=== PATIENT | female | born 1975 | race Caucasian/White ===

== ENCOUNTER → 2019-01-15 08:41 | Outpatient (CLI) | payer OTHER, SELFPAY ==
[2018-12-23 11:37] VITALS: BMI 34.2
--- NOTE | 2019-01-15 08:43 | BI_ITS ---
MAMMOGRAPHY - BILATERAL SCREENING REASON FOR EXAM: Female, 43 years old. Routine annual screening examination. PERTINENT HISTORY: Non-contributory. Prior left ultrasound-guided breast biopsies. TECHNIQUE: Digital bilateral breast daphnie (3D mammographic acquisition) in the CC and MLO projections. 2-D mediolateral oblique (MLO) and craniocaudad (CC) views of both breasts were obtained. CAD: Full Field Digital Mammography with Computer Added Detection was performed. COMPARISON: Comparison is made with prior study dated October 15, 2017. FINDINGS: Breast Composition: The breasts are extremely dense, which lowers the sensitivity of mammography. There is a 3.8 cm x 4.3 cm well-defined nodular density in the upper deep lateral portion of the left breast. A tissue clip marker is seen within it. 3 tissue clip markers are seen in the left breast. No other significant abnormalities are identified. There has been no significant change since the prior study. BI/SCREEN MAMM (CAD) W/DAPHNIE BILAT IMPRESSION: Stable bilateral screening mammogram. Yearly follow-up mammogram recommended. (A) ASSESSMENT CATEGORY: BIRADS Category 2: Benign. A letter regarding these results will be sent to the patient by the facility within 30 days. Approximately 10% of breast cancers are not detected by mammography. A normal mammogram should not delay biopsy of a clinically suspicious abnormality. [id number] Electronically Signed: Alexsnader Rush MD at 11:14 EST , Service support ,
== END ==
PROVIDERS: Family Provider Family Medicine; PCP Family Medicine; Referring Provider Obstetrics & Gynecology; Visit Provider Obstetrics & Gynecology
DX: Z12.31 Encounter for screening mammogram for malignant neoplasm of breast (principal)
CPT/HCPCS: 77063; 77067

== ENCOUNTER → 2020-01-21 09:49 | Outpatient (CLI) | payer OTHER, SELFPAY ==
[2018-12-23 11:37] VITALS: BMI 34.2
[2020-01-06 10:58] VITALS: BMI 34.2
--- NOTE | 2020-01-21 09:51 | BI_ITS ---
MAMMOGRAPHY - BILATERAL SCREENING REASON FOR EXAM: Female, 44 years old. Routine annual screening examination. PERTINENT HISTORY: Non-contributory. TECHNIQUE: Digital bilateral breast daphnie (3D mammographic acquisition) in the CC and MLO projections. 2-D mediolateral oblique (MLO) and craniocaudad (CC) views of both breasts were obtained. CAD: Full Field Digital Mammography with Computer Added Detection was performed. COMPARISON: Comparison is made with prior study dated January 15, 2019 and October 15, 2017. FINDINGS: Breast Composition: The breasts are extremely dense, which lowers the sensitivity of mammography. There are no dominant masses or suspicious calcifications. Stable 3.5 cm x 4 cm well-defined nodule in the upper lateral aspect of the left breast. A tissue clip marker is seen within it. 3 additional tissue markers are seen in the left breast. Stable small benign-appearing bilateral axillary lymph nodes. No other significant abnormalities are identified. There has been no significant change since the prior study. BI/SCREEN MAMM (CAD) W/DAPHNIE BILAT IMPRESSION: Stable bilateral screening mammogram. Yearly follow-up mammogram recommended. (A) ASSESSMENT CATEGORY: BIRADS Category 2: Benign. A letter regarding these results will be sent to the patient by the facility within 30 days. Approximately 10% of breast cancers are not detected by mammography. A normal mammogram should not delay biopsy of a clinically suspicious abnormality. [id number] Electronically Signed: Alexsander Rush, at 11:04 EST , Service support ,
== END ==
PROVIDERS: Family Provider Family Medicine; PCP Family Medicine; Referring Provider Obstetrics & Gynecology; Visit Provider Obstetrics & Gynecology
DX: Z12.31 Encounter for screening mammogram for malignant neoplasm of breast (principal)
CPT/HCPCS: 77063; 77067

== ENCOUNTER → 2020-07-28 11:00 | Outpatient (CLI) | payer OTHER, SELFPAY ==
[2020-01-06 10:58] VITALS: BMI 34.2
--- NOTE | 2020-07-28 11:05 | RAD_ITS ---
STUDY: X-RAY - LUMBAR SPINE REASON FOR EXAM: Female, 45 years old. lumbosacral radiculopathy TECHNIQUE: 5 view(s) of the lumbar spine were obtained. COMPARISON: None FINDINGS: There is straightening of the normal lumbar lordosis. There is no substantial scoliosis. There is a normal alignment of the vertebrae. Normal vertebral bodies and endplates. Moderate degenerative disc disease and loss of disc height at L5-S1, otherwise normal disc space heights. There is no demonstrated fracture. The soft tissue structures are unremarkable. RAD/L/S Spine Min 4 Views IMPRESSION: No acute abnormality. Degenerative disc disease at L5-S1. Electronically Signed: Dalton Ware MD at 19:08 EDT , Service support ,
== END ==
PROVIDERS: PCP Family Medicine; Referring Provider Nurse Practitioner Family; Visit Provider Nurse Practitioner Family
DX: M54.9 Dorsalgia, unspecified (principal)
CPT/HCPCS: 72110

== ENCOUNTER 2020-09-04 11:30 | Outpatient (RCR) | payer OTHER, SELFPAY ==
[2020-01-06 10:58] VITALS: BMI 34.2
--- NOTE | 2020-08-04 13:56 | HP.PTEVAL ---
Patient's Visit Information SEBASTIEN ORTIZ is a 45 year old F referred to Physical Therapy by VANESSA Li with a diagnosis of DDD. Date of Evaluation: 08/04/20 Physical Therapist: Nurys Downing PT, Cert MDT - Visit Plan Frequency: 2-3x /Week Duration: 4-6 Weeks Plan: AQUATIC THERAPY FOR PAIN RELIEF, POSTURE CORRECTION/STRENGTHENING, INSTRUCTION IN APPROPRIATE BODY MECHANICS AND ACTIVITY MODIFICATIONS. DLS STARTING WITH A NEUTRAL SPINE PROGRESSING ROM TOLERATED. BILL LE ROM, STRETCHING AND STRENGTHENING. HEP INSTRUCTION. 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 Disability: NO. Present symptoms: LOW BACK PAIN. TAILBONE PAIN. RIGHT THIGH PAIN RECENT ABOUT A MONTH AGO. LEFT THIGH, LEG AND FOOT PAIN, NUMBNESS AND TINGLING RECENT ABOUT 3 WEEKS AGO. Present since: 15 YEARS. Pain Scale: WORST 8/10, LEAST 5/10 (CONSTANT LBP BUT LE SX'S COME AND GO). Currently: 8/10. Commenced as a result of: NO APPARENT REASON OTHER THAN DOING A LOT OF BENDING TO DO PEDICURES AND HOUSE CLEANING. Symptoms at onset: BACK. Worse: SITTING, BENDING, CLEANING, GARDENING, WEEDING, ANYTHING BENDING. MANICURES AT WORK. Better: STANDING, LYING DOWN. Disturbed sleep: YES. Previous history/Previous treatment: PHYSICAL THERAPY - NO BETTER NO WORSE ([facility]), [facility] MULTIPLE TIMES WITH DR. LOPEZ - DID NOT HELP. ALSO TO DR. TILLEY TWICE FOR INJECTIONS AND THEY DID NOT HELP EITHER. PRESCRIBED 500 MB OF NAPROXEN AND IT SEEMS TO HELP SOME. TRIED CHIRO ONCE A LONG TIME AGO AND IT MADE IT MADE ME WORSE. ACCUPUNCTURE, MASSAGE - NO LASTING EFFECT. Coughing/sneezing/straining: SOMETIMES. Gait: PATIENT REPORTS BY THE END OF WORKING ALL DAYS SOMETIMES SHE CAN'T WALK STRAIGHT. NO ASSISTIVE DEVICES. Difficulty initiating urinatin: NO. Accidents: NO. Unexplained weight loss: NO. Imaging: LOW BACK X-RAY LAST WEEK - [facility] EMR - Moderate degenerative disc disease and loss of disc height at L5-S1, otherwise normal disc space heights. There is no demonstrated fracture. PMH: DEPRESSION, RLS, INSOMNIA. Recent major surgery: HYSTERECTOMY, L IT BAND RELEASE 1994 - PATIENT REPORTS FULL RECOVERY. LEFT WRIST PAIN. OTHER: PATIENT REPORTS SHE WAS GOING TO SEE A SURGEON ABOUT 8 YEARS AGO BUT DECIDED NOT TO. - Objective Sitting/Standing Posture: POOR. Lordosis: NORMAL. Lateral shift: NO. Relevant shift: N/A. Active Correction of posture: NE. Other Observations: INDEP GAIT AND TRANSFERS. Motor deficit: BILL LE STRENGTH 5/5 WITH MMT'ING EXCEPT HIPS GRADED 4/5. Sensory deficit: BILL LE LIGHT TOUCH SENSATION IS REPORTED INTACT AND SYMMETRICAL. ROM deficit: TIGHT BILL HS'S AND GASTROC SOLEUS COMPLEX'S. Reflexes: UNABLE TO ELICIT BILL LE DTR'S. Dural Signs: POSITIVE LLE. Lumbar mvmt loss: flex - MOD. ext - MOD. R SG - MOD. L SG - MOD. PATIENT C/O INCREASED LBP WITH LUMBAR ROM TESTING ALL PLANES. Core strength: POOR. Palpation: PATIENT DOES NOT LIKE TO BE PALPATED IN LOW BACK REGION AT ALL. TREATMENT: NEUROMUSCULAR REEDUCATION - RETRAINING OF MVMT AND POSTURE FOR SITTING, LYING AND STANDING ACTIVITIES. - Goals Goal 1:: DECREASE C/O LOW BACK PAIN Goal Time Frame: 4-6 Weeks Goal 2:: IMPROVE PERSONAL CARE, LIFTING, WALKING, SITTING, STANDING, SLEEP, SOCIAL LIFE, TREAVEL, WORK AND HOMEMAKING FUNCTION. Goal Time Frame: 4-6 Weeks Goal 3:: INSTRUCTION IN PROPHYLAXIS Goal Time Frame: 4-6 Weeks - Anticipated Interventions Patient/Client Instruction: Educate patient on: Condition, Plan of Care, Risk Factors, Benefits of Fitness Program For the Purpose of:: To improve self management Therapeutic Exercise to Include: Strength training, Body mechanics, Postural training, Flexibilty training, Neuromotor development, In an aquatic setting, Dynamic Lumbar Stabilization For the Purpose of:: To decrease pain, To improve muscle performance and motor function, To increase tolerance to activity/condition/position, To improve ability of physical actions for home/community/work/leisure Thank you for the opportunity to evaluate your patient. For Medicare and Medicare HMO plans, please review the plan of care and approve it. It will need to be FAXED BACK to us at [phone] for Medicare purposes. For Medicare only, by signing this I certify the plan of care. Please let me know if there are questions or concerns regarding this plan of care. Physician Signature: Date:
--- NOTE | 2020-09-04 12:01 | HP.PTDCSUM ---
It has been my pleasure to treat SEBASTIEN ORTIZ referred by VANESSA Li, with the diagnosis of DDD for a total of 12 visit(s). Discharge Date: Please see the following information for a summary of their discharge status. Subjective: PATIENT REPORTS SHE IS NO BETTER. IT IS ALWAYS VERY PAINFUL WHEN I AM SITTING. FOLLOW UP PENDING WITH PAIN MGMT FRIDAY. Lumbar Spine Pain Intensity (Out of 10): 9 LLE Pain Intensity (Out of 10): 7 RLE Pain Intensity (Out of 10): 4 % Improvement: 0 Objective/Function: PATIENT WAS SEEN TODAY FOR RE-ASSESSMENT OF PROGRESS TOWARD THE SET PT GOALS AND THE NEED FOR FURTHER PHYSICAL THERAPY VS READINESS FOR DISCHARGE. PATIENT IS NOT MAKING PROGRESS AND IS APPROPRIATE FOR DISCHARGE AND PHYSICIAN RE-ASSESSMENT. PATIENT IS AGREEABLE. UPON EXAM TODAY: Dural Signs: POSITIVE LLE. Lumbar mvmt loss: flex - MOD. ext - MOD. R SG - MOD. L SG - MOD. PATIENT C/O INCREASED LBP WITH LUMBAR ROM TESTING ALL PLANES. Core strength: POOR. Palpation: PATIENT DOES NOT LIKE TO BE PALPATED IN LOW BACK REGION AT ALL. Goal 1:: DECREASE C/O LOW BACK PAIN Goal Progress: Not Progressing Goal 2:: IMPROVE PERSONAL CARE, LIFTING, WALKING, SITTING, STANDING, SLEEP, SOCIAL LIFE, TREAVEL, WORK AND HOMEMAKING FUNCTION. Goal Progress: Not Progressing Goal 3:: INSTRUCTION IN PROPHYLAXIS Goal Progress: Not Progressing Plan: D/C DUE TO LACK OF PROGRESS. If there are questions or concerns regarding this patient's physical therapy, please feel free to call me at [phone]. Thank you for the referral of this patient. Sincerely, Nurys Downing, PT, Cert MDT
== END 2020-09-04 19:00 | disposition home or self-care (01) ==
LOC: PT 11:30
PROVIDERS: PCP Family Medicine; Referring Provider Nurse Practitioner Family; Visit Provider Nurse Practitioner Family
DX: M51.37 Other intervertebral disc degeneration, lumbosacral region (principal)
CPT/HCPCS: 97113; 97162; 97164

== ENCOUNTER → 2020-09-15 17:43 | Outpatient (CLI) | payer OTHER, SELFPAY ==
[2020-01-06 10:58] VITALS: BMI 34.2
--- NOTE | 2020-09-15 18:15 | MRI_ITS ---
STUDY: MRI LUMBAR SPINE WITHOUT CONTRAST REASON FOR EXAM: Female, 45 years old. Radiculopathy spondylosis left leg pain TECHNIQUE: Standardized fat and water weighted pulse sequences were obtained in the sagittal and axial planes. COMPARISON: 28 July 2020 FINDINGS: lumbar spine is intact and aligned. Marrow, paraspinous soft tissues and SI joints are unremarkable. Conus medullaris terminates at the appropriate level with unremarkable cauda equina. Spinal canal is patent. There is disc extrusion along the left dorsal L5 compressing the left L4-L5 lateral recess and traversing L5 nerve root. It is not clear which disc level is the donor for this herniation, L4-L5 above L5-S1 below. Right recess is patent. Foramina are patent at all levels. MRI/Spine Lumbar (Routine) IMPRESSION: 1. Patent thecal sac. 2. Left L4-L5 lateral recess stenosis by disc extrusion. Electronically Signed: John Heart, at 19:20 EDT Tel , Service support ,
== END ==
PROVIDERS: PCP Family Medicine; Referring Provider Anesthesiology Pain Medicine; Visit Provider Anesthesiology Pain Medicine
DX: M54.17 Radiculopathy, lumbosacral region (principal); M51.37 Other intervertebral disc degeneration, lumbosacral region; M47.817 Spondylosis without myelopathy or radiculopathy, lumbosacral region; M48.07 Spinal stenosis, lumbosacral region
CPT/HCPCS: 72148

== ENCOUNTER → 2020-10-11 09:42 | Outpatient (CLI) | payer OTHER, SELFPAY ==
[2020-01-06 10:58] VITALS: BMI 34.2
== END ==
PROVIDERS: PCP Family Medicine; Referring Provider Orthopaedic Surgery Orthopaedic Surgery of the Spine; Visit Provider Orthopaedic Surgery Orthopaedic Surgery of the Spine
DX: Z11.59 Encounter for screening for other viral diseases (principal)
CPT/HCPCS: 87635; C9803; U0003

== ENCOUNTER → 2020-10-12 11:21 | Outpatient (CLI) | payer OTHER, SELFPAY ==
[2020-01-06 10:58] VITALS: BMI 34.2
[2020-10-12 11:37] LABS: Absolute Lymphocyte Count 2.18 X10^3/uL (0.83-4.51); Absolute Neutrophil Count 5.7 X10^3/uL (2.0-7.7); Basophil# 0.03 X10^3/uL; Basophil% 0.3 % (0-1); Eosinophil# 0.18 X10^3/uL; Eosinophils% 2.1 % (0-5); Hematocrit 40.6 % (37-47); Hemoglobin 13.6 g/dL (12.0-15.0); Lymphocyte # 2.18 X10^3/ul (4.0); Lymphocyte % 24.8 % (19-41); Mean Corp Hgb Conc 33.5 g/dL (32-36); Mean Corpuscular Hgb 31.1 pg (27.0-32.0); Mean Corpuscular Volume 92.7 fL (81-99); Mean Platelet Vol. 9.7 fl (6.2-12.0); Monocyte# 0.71 X10^3/uL; Monocyte% 8.1 % (0-10); NRBC Flagged by Analyzer 0 % (0-5); Neutrophil # 5.66 X10^3/uL (2.7-7.7); Neutrophil % 64.5 % (47-70); Platelet Count 280 K/mm3 (150-450); RBC Distribution Width CV 12.2 % (11.6-14.6); RBC Distribution Width SD 41.8 fl (35.1-43.9); Red Blood Count 4.38 M/mm3 (4.2-5.4); White Blood Count 8.8 K/mm3 (4.4-11.0)
[2020-10-12 11:48] LABS: Prothrombin Time (Protime)PT. 12.8 SECONDS (11.7-14.9)
== END ==
PROVIDERS: PCP Family Medicine; Referring Provider Orthopaedic Surgery Orthopaedic Surgery of the Spine; Visit Provider Orthopaedic Surgery Orthopaedic Surgery of the Spine
DX: M51.26 Other intervertebral disc displacement, lumbar region (principal)
CPT/HCPCS: 36415; 85025; 85610

== ENCOUNTER → 2021-04-23 07:21 | Outpatient (CLI) | payer OTHER, SELFPAY ==
[2020-01-06 10:58] VITALS: BMI 34.2
[2021-03-26 11:01] VITALS: BMI 35.4
--- NOTE | 2021-04-23 07:26 | BI_ITS ---
MAMMOGRAPHY - BILATERAL SCREENING REASON FOR EXAM: Female, 45 years old. Routine annual screening examination. PERTINENT HISTORY: Non-contributory. Remote left breast biopsies. TECHNIQUE: Digital bilateral breast daphnie (3D mammographic acquisition) in the CC and MLO projections. 2-D mediolateral oblique (MLO) and craniocaudad (CC) views of both breasts were obtained. CAD: Full Field Digital Mammography with Computer Added Detection was performed. COMPARISON: Comparison is made with prior study 10/21/2020 and 01/15/2019. FINDINGS: Breast Composition: The breasts are extremely dense, which lowers the sensitivity of mammography. There is a dominant 5.7 cm x 4.5 cm rounded nodular density in the upper lateral aspect of the left breast. A tissue clip marker seen within it. This has increased in size as compared to prior study. There is also evidence of a 1.1 cm x 1 cm nodular density in the central deep portion of the left breast. A tissue clip marker is seen within this nodule. Correlation with ultrasound is recommended. Once again, 3 tissue clip marker seen in the left breast. No other significant abnormalities are identified. BI/SCRN MAMM (CAD)W/DAPHNIE BILAT IMPRESSION: Interval increase in size of the nodular density in the upper lateral aspect of the left breast as described. Correlation with ultrasound is recommended. ASSESSMENT CATEGORY: BIRADS Category 0: Incomplete. Need additional imaging evaluation. A letter regarding these results will be sent to the patient by the facility within 30 days. Approximately 10% of breast cancers are not detected by mammography. A normal mammogram should not delay biopsy of a clinically suspicious abnormality. [id number] Electronically Signed: Alexsander Rush MD at 9:00 EDT , Service support ,
[2021-04-23 08:46] LABS: Cholesterol 177 mg/dL (200); Glucose 100 mg/dL (74-106); High Density Lipoprotein 42 mg/dL; Thyroid Stim Hormone (TSH) 2.84 uIU/mL (0.358-3.74); Triglycerides 209 mg/dL; Very Low Density Lipoprotein 42 mg/dL (5-40)
[2021-04-23 16:14] LABS: Xtra Tube EP Lab EXTRA TUBE
[2021-04-26 12:45] LABS: Vitamin D,25 Hydroxy 34.3 ng/mL
== END ==
PROVIDERS: PCP Family Medicine; Referring Provider Obstetrics & Gynecology; Visit Provider Obstetrics & Gynecology
DX: Z12.31 Encounter for screening mammogram for malignant neoplasm of breast (principal); Z13.1 Encounter for screening for diabetes mellitus; Z13.220 Encounter for screening for lipoid disorders; Z13.21 Encounter for screening for nutritional disorder
CPT/HCPCS: 36415; 77063; 77067; 80061; 82306; 82947; 84443

== ENCOUNTER → 2021-04-27 08:21 | Outpatient (CLI) | payer OTHER, SELFPAY ==
[2021-03-26 11:01] VITALS: BMI 35.4
--- NOTE | 2021-04-27 08:25 | US_ITS ---
STUDY: ULTRASOUND BREAST - LEFT REASON FOR EXAM: Female, 45 years old. Abnormal screening mammogram. TECHNIQUE: Axial and longitudinal images of the LEFT breast were performed with a high resolution ultrasound transducer. # OF IMAGES: 11 COMPARISON: Comparison is made with prior ultrasound the left breast dated 10/31/2017 and prior mammogram dated 04/23/2021. FINDINGS: LEFT Breast: The mammographic abnormality corresponds to a 3.8 cm x 3.7 cm x 2.1 cm predominantly solid mass with small amount of cystic changes at the 1 o''clock position breast at 7 cm from nipple. A tissue clip marker is seen within it. US/Breast Limited Unilateral IMPRESSION: Slight increase in size of the hypoechoic but relatively solid nodule at the 1 o''clock position in the breast is 7 cm from the nipple. ASSESSMENT CATEGORY: BIRADS Category 2: Benign. A letter regarding these results will be sent to the patient by the facility within 30 days. Electronically Signed: Alexsander Rush MD at 14:20 EDT , Service support ,
== END ==
PROVIDERS: PCP Family Medicine; Referring Provider Obstetrics & Gynecology; Visit Provider Obstetrics & Gynecology
DX: N63.20 Unspecified lump in the left breast, unspecified quadrant (principal)
CPT/HCPCS: 76642

== ENCOUNTER → 2021-05-11 14:47 | Outpatient (CLI) | payer OTHER, SELFPAY ==
--- NOTE | 2021-05-11 | BRBX_PTH ---
PATIENT: SEBASTIEN MCNEILL LOC: [facility] U#:[id number] AGE/SX: 50/F ROOM: RE05/11/[address]: Dr. Courtney Jhaveri MD : 1975 BED: DIS: SPEC #: [id number] RECD: 05/11/21 14:45 STATUS: NIKKI ADRYAN #: [id number] SUKHWINDER: 05/11/21 00:[address]: Courtney Jhaveri DEPT: SURGICAL PATHOLOGY RECD BY: Mati Swann ENTERED: 05/14/21 09:54 SP TYPE: BREAST BX OTHR DR: Dr. Nash Tillman MD Tissues: Left breast, NOS Procedures: Surgery Specimen Level IV HEADER OPERATION: Ultrasound-guided needle core biopsy left breast PRE-OP DIAGNOSIS: Left breast mass TISSUE SUBMITTED: Left breast mass 1 o?clock, 7 cm from nipple MICROSCOPIC DIAGNOSIS Left breast mass at 1 o?clock, ultrasound-guided core biopsy: Densely collagenized tissue with mild duct ectasia. AM:miguel 05/15/2021 MICROSCOPIC DESCRIPTION Slides are reviewed. GROSS DESCRIPTION Received in fixative is one container labeled with the patient name and designated left breast. The specimen consists of multiple elongated fragments of thompson-yellow fibroadipose tissue that in aggregate measure 1 x 0.3 x 0.1 cm. The entire specimen is submitted in one cassette. / SJ:miguel 05/14/21 TC:5 CPT: [id number]
[2021-05-11 10:09] VITALS: BMI 35.4
== END ==
PROVIDERS: PCP Family Medicine; Referring Provider Surgery; Visit Provider Surgery
DX: N63.20 Unspecified lump in the left breast, unspecified quadrant (principal)
CPT/HCPCS: 88305

== ENCOUNTER 2021-12-18 14:30 | Outpatient (CLI) | payer OTHER, SELFPAY ==
[2021-12-18 17:31] LABS: Absolute Lymphocyte Count 2.74 X10^3/uL (0.83-4.51); Absolute Neutrophil Count 7.4 X10^3/uL (2.0-7.7); Basophil# 0.05 X10^3/uL; Basophil% 0.5 % (0-1); Eosinophil# 0.14 X10^3/uL; Eosinophils% 1.3 % (0-5); Hematocrit 41.6 % (37-47); Hemoglobin 14.4 g/dL (12.0-15.0); Lymphocyte # 2.74 X10^3/ul (0.83-4.51); Lymphocyte % 24.9 % (19-41); Mean Corp Hgb Conc 34.6 g/dL (32-36); Mean Corpuscular Hgb 31.6 pg (27.0-32.0); Mean Corpuscular Volume 91.2 fL (81-99); Mean Platelet Vol. 10.7 fl (6.2-12.0); Monocyte% 6.4 % (0-10); NRBC Flagged by Analyzer 0 % (0-5); Neutrophil # 7.36 X10^3/uL (2.7-7.7); Neutrophil % 66.6 % (47-70); Platelet Count 322 K/mm3 (150-450); RBC Distribution Width CV 12.5 % (11.6-14.6); RBC Distribution Width SD 41.4 fl (35.1-43.9); Red Blood Count 4.56 M/mm3 (4.2-5.4)
[2021-12-18 17:55] LABS: ALB/GLOB Ratio 0.9 RATIO (0.9-2.4); AST(SGOT) 16 U/L (15-37); Alanine Aminotransfer ALT/SGPT 28 U/L (13-56); Albumin, Serum 3.6 g/dL (3.2-5.0); Alkaline Phosphatase 67 U/L (45-117); Anion Gap 9 (5-15); BUN 14 mg/dL (7-18); BUN/Creat Ratio 18.2 RATIO (10-20); CRP 5.46 mg/L (0.0-3.0); Calcium,Total 9.2 mg/dL (8.5-10.1); Chloride 105 mmol/L (98-107); Creatinine, Serum 0.77 mg/dL (0.55-1.02); EST Glomerular Filtration Rate 86 mL/min (>60); Est Glom Filt Rate - Afr Amer 104 mL/min (>60); Globulin 3.8 g/dL (2.2-4.2); Glucose 142 mg/dL (74-106); Protein, Total 7.4 g/dL (6.4-8.2); Sodium Level 138 mmol/L (136-145); Thyroid Stim Hormone (TSH) 1.89 uIU/mL (0.358-3.74)
== END 2021-12-18 23:59 | disposition short-term general hospital (02) ==
PROVIDERS: PCP Family Medicine; Referring Provider Family Medicine; Visit Provider Family Medicine
DX: R42 Dizziness and giddiness (principal)
CPT/HCPCS: 36415; 80053; 84443; 85025; 86140

== ENCOUNTER → 2022-04-01 | Outpatient (CLI) | payer OTHER, MEDICAID, SELFPAY ==
--- NOTE | 2022-04-01 12:43 | BI_ITS ---
MAMMOGRAPHY - BILATERAL SCREENING REASON FOR EXAM: Female, 46 years old. Routine annual screening examination. PERTINENT HISTORY: Non-contributory. History of prior bilateral breast biopsies. TECHNIQUE: Digital bilateral breast daphnie (3D mammographic acquisition) in the CC and MLO projections. 2-D mediolateral oblique (MLO) and craniocaudad (CC) views of both breasts were obtained. CAD: Full Field Digital Mammography with Computer Added Detection was performed. COMPARISON: Comparison is made with prior examination dated 04/23/2021 and 01/21/2020. FINDINGS: Breast Composition: The breasts are extremely dense, which lowers the sensitivity of mammography. Stable 4.4 cm x 6 cm well-defined nodule in the upper lateral aspect of the right breast. A tissue clip marker is seen within it. There is also evidence of a 1.1 cm x 1 cm nodule in the central deep portion of the left breast. 3 tissue clip marker seen in the left breast. Stable benign-appearing bilateral axillary lymph nodes. No other significant abnormalities are identified. There has been no significant change since the prior study. BI/SCRN MAMM (CAD)W/DAPHNIE BILAT IMPRESSION: Stable bilateral screening mammogram. Yearly follow-up mammogram recommended. (A) ASSESSMENT CATEGORY: BIRADS Category 2: Benign. A letter regarding these results will be sent to the patient by the facility within 30 days. Approximately 10% of breast cancers are not detected by mammography. A normal mammogram should not delay biopsy of a clinically suspicious abnormality. [id number] Electronically Signed: Alexsander Rush MD at 13:32 EDT ,
== END | disposition home or self-care (01) ==
LOC: OPBI 12:41
PROVIDERS: PCP Family Medicine; Referring Provider Obstetrics & Gynecology; Visit Provider Obstetrics & Gynecology
DX: Z12.31 Encounter for screening mammogram for malignant neoplasm of breast (principal)
CPT/HCPCS: 77063; 77067

== ENCOUNTER 2022-10-03 09:18 | Emergency (ER) | payer OTHER, MEDICAID, SELFPAY ==
[2022-10-03 09:19] VITALS: BP 131/90; PULSE 95; RESP 18; TEMP 36; O2SAT 98; BMI 34.2
[2022-10-03] MEDS: Ketorolac 15 MG/ML Vial IV (10:31)
[2022-10-03] MEDS: Ondansetron 4 MG/2 ML Vial IV (10:31)
[2022-10-03] MEDS: morphine 8 MG/ML Syringe IV (10:31)
--- NOTE | 2022-10-03 11:00 | EDS_ITS ---
HPI History of Present Illness Chief Complaint: Back Detail of Chief Complaint: Low back pain with radiation to the right greater trochanteric region and a Informant: patient Onset/Context/Timing Onset: Days Context: Sudden Onset Chronic pain exacerbated by: Not applicable Injury: lifting, twisting, bending, direct trauma, fall, assault, repetitive motion and work related Timing: Continuous Quality: Sharp and Dull Location: Lumbar and Right Leg Current Severity: Moderate Maximum Severity: Severe Worsened by: improves with Movement, Ambulation, Bending and Lifting Relieved by: Nothing Associated Symptoms Associated Symptoms: Radiation to Left Leg and - (No saddle anesthesia or paresthesia. No foot drop. No buckling of knees going up or down steps.); Neg ative for Numbness, Tingling, Radiation to Right Leg, Fever, Abdominal Pain, Dysuria, Unable to Ambulate, Unable to Transfer, Urinary Retention, Urinary Incontinence, Constipation or Fecal Incontinence Narrative Narrative: Patient is a 47-year-old woman status post surgery for a L5 L4 left disc lateral extrusion. Surgery was performed at the [facility] by Dr. Bermudez. She denies fever, chills night sweats. She denies recent dental procedure. She denies bowel bladder dysfunction. No saddle paresthesia or anesthesia. She denies foot drop. She denies buckling of her knees going up or down steps. There is no history of trauma. Radiation as previously described that goes to the right hip region and anterior right thigh. Prior similar symptoms: Yes Recent Illness/Hospitalization: No [facility] Medical History Anxiety Arthritis Cluster headaches Constipation Depression Left breast mass Home Medications cetirizine 10 mg tablet 10 mg PO DAILY 12/15/15 [History Last Taken 12/21/15 05:30 10 MG] acetaminophen 650 mg tablet,extended release (Tylenol Arthritis Pain) 650 mg PO ONCE 12/23/18 [History Last Taken Unknown] etonogestrel 68 mg subdermal implant (Nexplanon) 1 implant subdermal ONCE 12/23/18 [History Last Taken Unknown] gabapentin 800 mg tablet 800 mg PO BID 12/23/18 [History Last Taken Unknown] melatonin 10 mg capsule 10 mg PO HS PRN Sleep 01/06/20 [History Last Taken Unknown] duloxetine 60 mg capsule,delayed release (Cymbalta) 60 mg PO DAILY 03/26/21 [History Last Taken Unknown] mirtazapine 15 mg tablet (Remeron) 15 mg PO DAILY 03/26/21 [History Last Taken Unknown] multivitamin 1 tab PO DAILY 05/11/21 [History Last Taken Unknown] oxycodone-acetaminophen 5 mg-325 mg tablet 1 tab PO Q6H PRN PRN pain 5 days #20 TABLETS 10/03/22 [Rx Last Taken Unknown] prednisone 10/03/22 [History Last Taken Unknown] Allergy/AdvReac Type Severity Reaction Status Date / Time codeine Allergy Unknown Verified 10/03/22 09:19 oxycodone Allergy Itching Verified 10/03/22 09:19 Sulfa (Sulfonamide Allergy Hives Verified 10/03/22 09:19 Antibiotics) sulfamethoxazole Allergy Unknown Verified 10/03/22 09:19 [From Bactrim] tramadol HCl [From Ultram] Allergy Unknown Verified 10/03/22 09:19 trimethoprim [From Bactrim] Allergy Unknown Verified 10/03/22 09:19 Family History Aunt Cancer lung,ovarian, hodgkins lymphoma Grandmother Cancer leukemia Colon cancer Heart disease Surgical History History of back surgery History of knee surgery History of total vaginal hysterectomy (TVH) Hx of left breast biopsy Social History Smoking Status: Current every day smoker tobacco type: cigarettes alcohol intake: current details: social substance use type: does not use caffeine: Yes what type of physical activity do you participate in: walking seatbelt use: always do you feel safe at home: Yes additional social history: Rd- [employer] Patient works at the [employer] ED Constitutional Constitutional ED: Denies chills, fever(s), subjective or sweats Eyes Eyes: Denies blurry vision or change in vision ENT ENT ED: Denies rhinorrhea or sore throat Cardiovascular Cardiovascular: Denies chest pain or palpitations Respiratory/Chest Respiratory/Chest: Denies dyspnea or dyspnea on exertion Gastrointestinal Gastrointestinal: Denies abdominal pain, nausea or vomiting Genitourinary Genitourinary ED: Denies dysuria or urinary frequency Musculoskeletal Musculoskeletal: Reports back pain; Denies arthralgias or myalgias Neurologic Neurologic: Denies headache(s), paresthesias or weakness Endocrine Endocrinology: Denies polydipsia, polyphagia or polyuria Hematologic/Lymphatic Hematologic/Lymphatic: Denies easy bleeding or easy bruising EXAM Physical Exam Const Vital Signs: 10/03/22 09:19 10/03/22 13:18 Temperature 96.8 F L Temperature Source Temporal Pulse Rate 95 Respiratory Rate 18 16 Blood Pressure 131/90 H Blood Pressure Mean 103 Pulse Ox 98 Oxygen Delivery Method Room Air Positive well nourished, well developed and obese Constitutional Narrative: Patient appears uncomfortable when she moves. General Appearance ED: well developed; Negative for pallor Nutritional Appearance: obese HEENT Reports moist mucous membranes HEENT Narrative: Head is atraumatic normocephalic. Ears normal. Nares patent. Mucosa moist. Eyes PERRL and EOMs intact bilaterally General Eye ED: Negative for pale conjunctiva or scleral icterus Neck no lymphadenopathy, supple and no JVD Resp normal respiratory effort Cardio regular rate, regular rhythm, S1 normal heart sound, S2 normal heart sound and no murmurs GI normal to inspection, nondistended, normoactive bowel sounds, soft to palpation, non-tender, non-distended and no masses Back/Spine no thoracic nor lumbar tenderness; Negative for normal to inspection Back/Spine Narrative: Well-healed surgical scar noted right side. Cervical Spine: Negative for cervical spine tenderness Lumbar Spine / Lower Back: ROM limited and straight leg raise negative bilaterally Extremity normal to inspection and no clubbing, cyanosis or edema General Extremety ED: Negative for edema or tenderness General Extremity: Negative for edema Neuro oriented x3 and no sensory deficits noted Neuro Narrative: EHLs intact bilaterally. Patient able to walk on heels and toes. Patient able to perform 1 legged squat right and left. Sensorium / Orientation: alert Motor Exam: strength 5/5 throughout Deep Tendon Reflexes: Rt Patellar (L4): 1+, Lt Patellar (L4): 1+, Rt Ankle (S1): 1+ and Lt Ankle (S1): 1+ Deep Tendon Reflexes Back: Rt Patellar (L4): 1+, Lt Patellar (L4): 1+, Rt Ankle (S1): 1+ and Lt Ankle (S1): 1+ Plantar Reflex: Downgoing: bilateral (There is no clonus noted.) Psych mental status grossly normal Skin no rashes or lesions noted and no wounds General Skin Exam: Negative for jaundice or pallor MDM MDM MDM Narrative Medical decision making narrative: Patient presently on prednisone with no benefit. Patient's history and physicals not consistent with a herniated disc. Review of patient's MRI revealed the single isolated abnormality with mild stenosis. Patient was medicated with IV Toradol, morphine and Zofran to prevent nausea and vomiting. Patient required multiple doses of morphine. Plan is discharged with fentanyl patch and pain medicine. She is to follow-up with her doctor. Discharge Plan Triage Chief Complaint: Back ED Provider: Ethan Garcia Dx/Rx/DC Orders Clinical Impression: Acute left-sided low back pain without sciatica, Idiopathic stenosis of lumbar spine Instructions: ED Back Pain (Acute or Chronic) Prescriptions: New oxycodone-acetaminophen [oxycodone-acetaminophen] 5-325 mg tablet 1 tab PO Q6H PRN PRN (Reason: pain) 5 Days Qty: 20 0RF No Action gabapentin 800 mg tablet 800 mg PO BID acetaminophen [Tylenol Arthritis Pain] 650 mg tablet extended release 650 mg PO ONCE Nexplanon 68 mg implant 1 implant Subdermal ONCE melatonin 10 mg capsule 10 mg PO HS PRN (Reason: Sleep) mirtazapine [Remeron] 15 mg tablet 15 mg PO DAILY duloxetine [Cymbalta] 60 mg capsule,delayed release(DR/EC) 60 mg PO DAILY multivitamin Tablet 1 tab PO DAILY cetirizine 10 MG tablet 10 mg PO DAILY Label Comments: allergies prednisone Primary Care Provider: Nash Tillman Referrals: Nash Tillman MD [Primary Care Provider] - 3-5 Days Disposition Disposition: Home, Self Care
[2022-10-03] MEDS: morphine 8 MG/ML Syringe 6 MG IV ×2 (11:40→13:35)
[2022-10-03] MEDS: diazePAM 5 MG Tablet PO (11:41)
[2022-10-03 13:18] VITALS: RESP 16
[2022-10-03 16:47] VITALS: RESP 16
--- NOTE | 2022-10-03 17:28 | NURSING ---
12 mcg fentanyl patch placed to left deltoid.
== END 2022-10-03 17:28 | disposition home or self-care (01) ==
PROVIDERS: Emergency Provider Emergency Medicine; PCP Family Medicine; Visit Provider Emergency Medicine
DX: M54.50 Low back pain, unspecified (principal); M48.061 Spinal stenosis, lumbar region without neurogenic claudication; F17.210 Nicotine dependence, cigarettes, uncomplicated; E66.9 Obesity, unspecified
CPT/HCPCS: 96374; 96375; 96376; 99285; A4216; J2405

== ENCOUNTER → 2022-10-28 | Outpatient (CLI) | payer OTHER, MEDICAID, SELFPAY ==
--- NOTE | 2022-10-28 10:46 | MRI_ITS ---
STUDY: MRI LUMBAR SPINE WITHOUT CONTRAST REASON FOR EXAM: Female, 47 years old. LUMBAGO TECHNIQUE: Standardized fat and water weighted pulse sequences were obtained in the sagittal and axial planes. COMPARISON: 09/15/2020. FINDINGS: T11-T12 and T12-L1: (Sagittal only). Normal endplates. Normal disc height, hydration and morphology. No ventral extradural defects. Normal central canal and bilateral intervertebral neural foramina. Normal lumbar lordosis. There is no substantial scoliosis. Normal conus medullaris that terminates at the lower L1 vertebral body level. L1-2: Normal endplates. Normal disc height, hydration and morphology. Normal bilateral facet joints. Normal central canal and bilateral lateral recesses. Normal bilateral intervertebral neural foramina. L2-3: Normal endplates. Normal disc height with minimal loss of disc hydration. Normal facet joints. Prominent dorsal epidural lipomatosis. Normal central canal and bilateral lateral recesses. Normal bilateral intervertebral neural foramina. L3-4: Normal endplates. Normal disc height, hydration and morphology. Normal bilateral facet joints. Normal central canal and bilateral lateral recesses. Normal bilateral intervertebral neural foramina. L4-5: Normal endplates. Moderate disc space height narrowing. Prominent posterior midline cephalad disc extrusion causing moderately pronounced central canal stenosis with an AP canal diameter of 5.3 mm. Normal bilateral lateral recesses. Normal facet joints. Normal bilateral intervertebral neural foramina. L5-S1: Normal endplates. Pronounced disc space narrowing. Normal facet joints. Left L5 hemilaminectomy defect following resection of the left posterior central disc extrusion with sequestration. Normal central canal and bilateral lateral recesses. Normal bilateral intervertebral neural foramina. Normal visualized sacral ala. Normal visualized paraspinous soft tissue structures. MRI/Spine Lumbar (Routine) IMPRESSION: 1. Prominent L4-L5 posterior midline cephalad disc extrusion causing moderately pronounced central canal stenosis with an AP canal diameter of 5.3 mm. This is a new finding when compared to 09/15/2020. 2. Left L5 hemilaminectomy defect following successful resection of the left L5-S1 posterior central disc extrusion with sequestration. Electronically Signed: Juan Luis Londono MD at 13:00 EST ,
== END | disposition home or self-care (01) ==
LOC: MRI 10:42
PROVIDERS: PCP Family Medicine; Referring Provider Family Medicine; Visit Provider Family Medicine
DX: M54.50 Low back pain, unspecified (principal)
CPT/HCPCS: 72148

== ENCOUNTER → 2022-11-07 | Outpatient (CLI) | payer OTHER, MEDICAID, SELFPAY ==
--- NOTE | 2022-11-07 12:55 | RAD_ITS ---
STUDY: X-RAY - LUMBAR SPINE REASON FOR EXAM: Female, 47 years old. pain TECHNIQUE: XR Spine Lumbar Comp W/ Bending Min 6 Views COMPARISON: 10/28/2022 MRI FINDINGS: Normal lumbar lordosis. There is no substantial scoliosis. There is a normal alignment of the vertebrae. There is multilevel endplate spondylosis of the lumbar vertebrae. There is multi-level degenerative disc disease with multi-level disc space narrowing at L4-5 and L5-S1. The soft tissue structures are unremarkable. RAD/L/S Spine w Bend Min 6 Vw IMPRESSION: Mild degenerative findings in the lumbar spine. Electronically Signed: Patrick Christopher MD at 19:16 EST ,
== END | disposition home or self-care (01) ==
LOC: MTRAD 12:55
PROVIDERS: PCP Family Medicine; Referring Provider Family Medicine; Visit Provider Family Medicine
DX: M54.50 Low back pain, unspecified (principal)
CPT/HCPCS: 72114

== ENCOUNTER → 2023-04-03 | Outpatient (CLI) | payer MEDICAID, OTHER, SELFPAY ==
--- NOTE | 2023-04-03 14:31 | BI_ITS ---
MAMMOGRAPHY - BILATERAL SCREENING REASON FOR EXAM: Female, 47 years old. Routine annual screening examination. PERTINENT HISTORY: Non-contributory. Prior left ultrasound guided breast biopsies. TECHNIQUE: Digital bilateral breast daphnie (3D mammographic acquisition) in the CC and MLO projections. 2-D mediolateral oblique (MLO) and craniocaudad (CC) views of both breasts were obtained. CAD: Full Field Digital Mammography with Computer Added Detection was performed. COMPARISON: Comparison is made with prior study April 01, 2022 and April 23, 2021. FINDINGS: Breast Composition: The breasts are extremely dense, which lowers the sensitivity of mammography. 4.4 sign by 6 cm well-defined nodule in the upper outer aspect of the left breast. A tissue clip marker seen within it. There is also evidence of a 1.1 sign by 1 cm nodule in the central deep portion of the left breast. A tissue clip marker is seen within it as well. There is also evidence of a small nodule in the inferior medial aspect of the left breast with a tissue clip marker. No other significant abnormalities are identified. There has been no significant change since the prior study. BI/SCRN MAMM (CAD)W/DAPHNIE BILAT IMPRESSION: Stable bilateral screening mammogram. Yearly follow-up mammogram recommended. (A) ASSESSMENT CATEGORY: BIRADS Category 2: Benign. A letter regarding these results will be sent to the patient by the facility within 30 days. Approximately 10% of breast cancers are not detected by mammography. A normal mammogram should not delay biopsy of a clinically suspicious abnormality. [id number] Electronically Signed: Alexsander Rush MD at 15:47 EDT ,
== END | disposition home or self-care (01) ==
LOC: OPBI 14:30
PROVIDERS: PCP Family Medicine; Referring Provider Obstetrics & Gynecology; Visit Provider Obstetrics & Gynecology
DX: Z12.31 Encounter for screening mammogram for malignant neoplasm of breast (principal)
CPT/HCPCS: 77063; 77067

== ENCOUNTER → 2024-04-15 | Outpatient (CLI) | payer MEDICAID, BC, SELFPAY ==
--- NOTE | 2024-04-15 14:02 | BI_ITS ---
MAMMOGRAPHY - BILATERAL SCREENING REASON FOR EXAM: Female, 48 years old. Routine annual screening examination. PERTINENT HISTORY: Non-contributory. TECHNIQUE: Digital bilateral breast daphnie (3D mammographic acquisition) in the CC and MLO projections. 2-D mediolateral oblique (MLO) and craniocaudad (CC) views of both breasts were obtained. CAD: Full Field Digital Mammography with Computer Added Detection was performed. COMPARISON: Comparison is made with prior study of April 03, 2023 and April 01, 2022. FINDINGS: Breast Composition: The breasts are extremely dense, which lowers the sensitivity of mammography. Stable 4.4 cm x 6.4 cm nodule in the upper outer aspect of the left breast. A tissue clip marker is seen within it. There is also evidence of a 1 cm x 1.5 cm well-defined nodule in the central deep portion of the left breast. A tissue clip marker is seen within it as well. A tissue clip marker is also seen with a 1 cm nodule in the inferior medial aspect of the left breast No other significant abnormalities are identified. There has been no significant change since the prior study. BI/SCRN MAMM (CAD)W/DAPHNIE BILAT IMPRESSION: Stable bilateral screening mammogram. Yearly follow-up mammogram recommended. (A) ASSESSMENT CATEGORY: BIRADS Category 2: Benign. A letter regarding these results will be sent to the patient by the facility within 30 days. Approximately 10% of breast cancers are not detected by mammography. A normal mammogram should not delay biopsy of a clinically suspicious abnormality. [id number] Electronically Signed: Alexsander Rush MD at 9:15 EDT ,
== END | disposition home or self-care (01) ==
LOC: OPBI 14:02
PROVIDERS: PCP Family Medicine; Referring Provider Obstetrics & Gynecology; Visit Provider Obstetrics & Gynecology
DX: Z12.31 Encounter for screening mammogram for malignant neoplasm of breast (principal)
CPT/HCPCS: 77063; 77067

== ENCOUNTER → 2024-08-03 | Outpatient (CLI) | payer BC, SELFPAY ==
--- NOTE | 2024-08-03 08:38 | US_ITS ---
STUDY: ULTRASOUND BREAST - LEFT REASON FOR EXAM: Female, 49 years old. 4 month history of left breast lump. TECHNIQUE: Axial and longitudinal images of the LEFT breast were performed with a high resolution ultrasound transducer. # OF IMAGES: 23 COMPARISON: Comparison is made with prior sonogram dated April 27, 2021 and prior mammogram dated April 15, 2024. FINDINGS: LEFT Breast: The palpable lump corresponds to a 4.8 cm x 4 cm x 1.8 cm heterogeneous solid and cystic density at the 5:00 position of the breast at 5 cm from the nipple. Biopsy recommended for further evaluation. US/Breast Limited Unilateral IMPRESSION: The palpable lump corresponds to a 4.8 cm x 4 cm x 1.8 cm heterogeneous solid and cystic density at the 5:00 position of the breast at 5 cm from the nipple. Biopsy recommended. ASSESSMENT CATEGORY: BIRADS Category 4: Suspicious - Biopsy Should Be Considered. A letter regarding these results will be sent to the patient by the facility within 30 days. Electronically Signed: Alexsander Rush MD at 14:25 EDT ,
== END | disposition home or self-care (01) ==
PROVIDERS: PCP Family Medicine; Referring Provider Obstetrics & Gynecology; Visit Provider Obstetrics & Gynecology
DX: N63.20 Unspecified lump in the left breast, unspecified quadrant (principal)
CPT/HCPCS: 76642

== ENCOUNTER → 2024-08-06 | Outpatient (CLI) | payer BC, SELFPAY ==
--- NOTE | 2024-08-06 | IMM_PTH ---
PATIENT: SEBASTIEN MCNEILL LOC: [facility] U#:[id number] AGE/SX: 49/F ROOM: RE08/06/[address]: Dr. Courtney Jhaveri MD : 1975 BED: DIS: 08/06/2024 SPEC #: [id number] RECD: 08/10/24 10:35 STATUS: NIKKI REQ #: [id number] SUKHWINDER: 08/06/24 00:[address]: Courtney Jhaveri DEPT: IMMUNOHISTOCHEMISTRY RECD BY: Douglas Blancas ENTERED: 08/10/24 10:37 SP TYPE: IMMUNO OTHR DR: Dr. Nash Tillman MD Tissues: Left breast, NOS Procedures: SMA (add) CD31 (add) CD34 (add) DESMIN (add) KI-67 (add) P53 (add) WI (add) Vimentin (add) Pankeratin (initial) ER (initial) PHYSICIAN & INSTITUTION [place] [id number] SPECIMEN INFORMATION: Tissue Source: Left breast mass tissue Clinical Info: Left breast mass biopsy Specimen Number: [id number] CPT code: 99634,[id number] METHODOLOGY: Deparaffinized sections of prefer/formalin-fixed tissue or PAP/DQ stained slides are incubated with monoclonal/polyclonal antibodies/oligonucleotide probes. Localization is made via biotin free immunoperoxidase method. Appropriate controls are performed and reacted as expected. Results on target cell population are indicated in the following table: RESULTS: ANTIBODY / CLONE RESULT AE1-3 (AE1/AE3/PCK26) positive, benign glands Vimentin (V9) positive CD31 (DARCIE/70A) negative CD34 (QBEnd-10) positive Actin (1A4) negative Desmin (CE-R-11) negative P53 (DO-7) negative, null pattern Ki-67 (30-9) negative MORPHOMETRIC ANALYSIS ER (clone 6F11) positive, benign glands WI (clone 16/1E2) positive, benign glands These assays have not been validated on decalcified tissues. Results should be interpreted with caution given the likelihood of false negativity on decalcified specimens or fixation greater than 72 hours. Alternative testing methods (FISH/dualISH for Her2; gene expression for ER) are recommended, if applicable. Please notify the laboratory if additional testing is required. These tests were developed and their performance characteristics determined by [facility]. They may not have been cleared or approved by the U.S. Food and Drug Administration. The FDA has determined that such clearance or approval is not necessary. The above immunohistochemical/dualISH markers are ordered and reviewed by the Pathologist. INTERPRETATION: Left breast mass, needle core biopsy: Consistent with pseudoangiomatous stromal hyperplasia. Positive for estrogen receptors (favorable prognostic indicator). Positive for progesterone receptors (favorable prognostic indicator). Case has been reviewed in consultation with Dr. Benavides who concurs with the above diagnosis. IDC:CARLOS JUAREZ/ 08/11/2024
--- NOTE | 2024-08-06 | BRBX_PTH ---
PATIENT: SEBASTIEN MCNEILL LOC: [facility] U#:[id number] AGE/SX: 49/F ROOM: RE08/06/[address]: Dr. Courtney Jhaveri MD : 1975 BED: DIS: 08/06/2024 SPEC #: [id number] RECD: 08/06/24 14:31 STATUS: NIKKI ADRYAN #: [id number] SUKHWINDER: 08/06/24 00:[address]: Courtney Jhaveri DEPT: SURGICAL PATHOLOGY RECD BY: Rox Forrester ENTERED: 08/09/24 07:11 SP TYPE: BREAST BX OTHR DR: Dr. Nash Tillman MD Tissues: Left breast, NOS Procedures: Surgery Specimen Level IV HEADER OPERATION: Needle core biopsy of left breast mass PRE-OP DIAGNOSIS: Left breast mass biopsy TISSUE SUBMITTED: Left breast mass tissue Ischemic Time: 1 minute Fixation Time: 77 hours MICROSCOPIC DIAGNOSIS Left breast mass, core biopsy: Consistent with pseudoangiomatous stromal hyperplasia. See comment. Aniket 08/10/2024 COMMENT Immunohistochemistry ([id number]) supports the above diagnosis. The lesion is consistent with a benign myofibroblastic proliferation. Clinical correlation is suggested. Case has been reviewed in consultation with Dr. Benavides who concurs with the above diagnosis. IDC:CARLOS MICROSCOPIC DESCRIPTION Slides are reviewed. GROSS DESCRIPTION Received in fixative is one container labeled with the patient's name and designated Left breast mass tissue. The specimen consists of multiple elongated fragments of thompson-yellow fibroadipose tissue that in aggregate measure 1.0 x 0.5 x 0.1 cm. The specimen is totally submitted in one cassette. 08/09/2024 TC:5 CPT:16662
== END | disposition home or self-care (01) ==
LOC: LABSPEC 14:36
PROVIDERS: PCP Family Medicine; Referring Provider Surgery; Visit Provider Surgery
DX: N63.20 Unspecified lump in the left breast, unspecified quadrant (principal)
CPT/HCPCS: 88305; 88341; 88342

== ENCOUNTER 2024-09-09 09:39 | Day surgery (SDC) | payer BC, SELFPAY ==
[2024-09-09] VITALS (9 sets, daily range): BP systolic 115–147; BP diastolic 62–97; PULSE 73–82; RESP 16; TEMP 36.4–36.7; O2SAT 98–100; BMI 31.7
--- NOTE | 2024-09-09 | IMM_PTH ---
PATIENT: SEBASTIEN MCNEILL [place] [facility] [id number] AGE/SX: 49/F ROOM: RE09/09/[address]: Dr. Courtney Jhaveri MD : 1975 BED: DIS: 09/09/2024 SPEC #: [id number] RECD: 09/14/24 13:53 STATUS: NIKKI REQ #: [id number] SUKHWINDER: 09/09/24 00:[address]: Courtney Jhaveri DEPT: IMMUNOHISTOCHEMISTRY RECD BY: Douglas Blancas ENTERED: 09/14/24 13:54 SP TYPE: IMMUNO OTHR DR: Dr. Nash Tillman MD Tissues: Breast, NOS Procedures: SMA (add) CD31 (add) CD34 (add) DESMIN (add) KI-67 (add) P53 (add) DC (add) Vimentin (add) FACTOR VIII (add) Pankeratin (initial) ER (initial) PHYSICIAN & INSTITUTION [address] [id number] SPECIMEN INFORMATION: Tissue Source: Left breast mass Clinical Info: Pseudoangiomatous stromal hyperplasia of breast Specimen Number: [id number] CPT code: 54870,[id number] METHODOLOGY: Deparaffinized sections of prefer/formalin-fixed tissue or PAP/DQ stained slides are incubated with monoclonal/polyclonal antibodies/oligonucleotide probes. Localization is made via biotin free immunoperoxidase method. Appropriate controls are performed and reacted as expected. Results on target cell population are indicated in the following table: RESULTS: ANTIBODY / CLONE RESULT Block #6 ER (6F11) positive, stromal cells DC (1E2) positive, stromal cells AE1-3 (AE1/AE3/PCK26) positive, normal ducts Vimentin (V9) positive CD31 (DARCIE/70A) positive, vessels only Factor VIII (R Ag) positive, vessels only CD34 (QBEnd-10) positive Actin (1A4) positive Desmin (CE-R-11) positive, occasional P53 (DO-7) negative, null pattern Ki-67 (30-9) positive, rare cells These tests were developed and their performance characteristics determined by [facility]. They may not have been cleared or approved by the U.S. Food and Drug Administration. The FDA has determined that such clearance or approval is not necessary. The above immunohistochemical/dualISH markers are ordered and reviewed by the Pathologist. INTERPRETATION: Left breast mass, ultrasound guided core biopsy: Consistent with pseudoangiomatous stromal hyperplasia. AM.mr 09/15/2024
--- NOTE | 2024-09-09 10:44 | PCM.HP.BLA ---
History and Physical Date of Admission: 09/09/24 Date of Service: 08/19/24 MR#: [id number] Acct: [id number] Name: SEBASTIEN MCNEILL (LAWWILL) Rep #: [id number] : 1975 Provider: Dr. Courtney Jhaveri MD Age/Sex: 49/F Location: [facility] Status: Signed Intake Vital Signs 08/06/2413:49 08/19/2413:05 Height 5 ft 7 in 5 ft 7 in Weight: 206 lb 204 lb BMI 32.2 31.9 BP 134/82 H 124/80 H Blood Pressure Location Rt brachial Rt brachial Position Sitting Sitting Respiration 17 17 Pulse 83 82 Pulse Source Monitor Monitor Temp 97 F L Temp Source Temporal Pulse Oximetry (%) 98 99 Oxygen Delivery Method room air room air Intake Visit Reasons: DISCUSS EXCISIONS OF BREAST MASS Chief Complaint: Discuss excision of breast mass Is patient in pain?: No Allergies codeine Allergy (Verified 08/19/24 13:06) Unknownoxycodone Allergy (Verified 08/19/24 13:06) ItchingSulfa (Sulfonamide Antibiotics) Allergy (Verified 08/19/24 13:06) Hivessulfamethoxazole (From Bactrim) Allergy (Verified 08/19/24 13:06) Unknowntrimethoprim (From Bactrim) Allergy (Verified 08/19/24 13:06) Unknown Medications ?Medication ?Instructions ?Recorded ?Confirmed ?Type cetirizine 10 mg tablet 10 mg PO DAILY 12/15/15 08/19/24 History acetaminophen 650 mg 650 mg PO ONCE 12/23/18 08/19/24 History tablet,extended release (Tylenol Arthritis Pain) etonogestrel 68 mg subdermal 1 implant subdermal ONCE 12/23/18 08/19/24 History implant (Nexplanon) melatonin 10 mg capsule 10 mg PO HS PRN Sleep 01/06/20 08/19/24 History mirtazapine 15 mg tablet (Remeron) 15 mg PO DAILY 03/26/21 08/19/24 History multivitamin 1 tab PO DAILY 05/11/21 08/19/24 History duloxetine 60 mg capsule,delayed 120 mg PO DAILY 07/27/24 08/19/24 History release (Cymbalta) gabapentin 800 mg tablet 1,200 mg PO QHS 07/27/24 08/19/24 History naproxen sodium 220 mg capsule 220 mg PO BID PRN 07/27/24 08/19/24 History sumatriptan succinate 50 mg tablet 50 mg PO ONCE PRN migraine 07/27/24 08/19/24 Rx headache #10 tabs PFSH Medical History Left breast mass Contraceptive management Constipation Anxiety Depression Cluster headaches Arthritis Surgical History Hx of left breast biopsy History of back surgery History of knee surgery History of total vaginal hysterectomy (TVH) Family History Aunt Cancer lung,ovarian, hodgkins lymphomaGrandmother Cancer leukemia Colon cancer Heart disease Social History current occupational status: employed current occupation: [employer] / [employer] Smoking Status: Current every day smoker tobacco type: cigarettes alcohol intake: former details: social substance use type: does not use caffeine: Yes what type of physical activity do you participate in: walking seatbelt use: always do you feel safe at home: Yes additional social history: Patient works at the [employer] and [employer] HPI HPI HPI: 49-year-old female presents to discuss left breast biopsy results. Patient's left breast pathology came back as PAS. Patient states the biopsy site is healing well. ROS General General: Yes weight change and fatigue; No appetite, colon cancer or breast cancer HEENT HEENT: No difficulty swallowing, eye injury, eye surgery, swollen glands or hoarseness Endo Endocrine: No thyroid disease, diabetes mellitus, thyroid cancer, Hair loss, heat intolerance or cold intolerance Skin Skin: No rash or changing moles Breast Breast: Yes left breast lump and abnormal US; No right breast lump, nipple discharge, breast pain, abnormal mammogram or breast enlargement Musc Musculoskeletal: Yes back problems and arthritis; No rheumatoid arthritis, gout or joint pain Cardio Cardiovascular: No murmur, pacemaker, heart disease, atrial fibrillation, high blood pressure, heart attack, heart stent, palpitations, shortness of breat with exertion or chest pain Psych Psychiatric: Yes depression and anxiety; No hearing voices Resp Respiratory: No shortness of breath, No sleep apnea, No cough, No COPD, No asthma, No emphysema and No wheezing Gastro Gastrointestinal: No abdominal pain, No nausea or vomiting, No diarrhea, No constipation, No blood in stool, No acid reflux, No hemorrhoids, No ulcers, No gallbladder problem and No black,tarry stools Jez Hematologic: No blood thinners, No blood disorders, No bleeding, No anemia and No blood clots Neuro Neurologic: Yes numbness and Yes tingling Exam Const General: cooperative, healthy appearing and no acute distress HENMO Head: normal to inspection Chest Other: Left breast: Biopsy site healing well Resp Effort & Inspection: normal respiratory effort Cardio Rate: regular rate GI Inspection: non-distended Palpation: soft Skin General: no rashes or lesions noted Neuro General: patient oriented x3 Extrem General: no clubbing, cyanosis or edema Psych Affect: normal affect Assessment and Plan Assessment and Plan (1) Pseudoangiomatous stromal hyperplasia of breast: Status: Acute Comment: left Plan Discussed with patient would recommend an ultrasound-guided wire localization excisional biopsy for PASH of the left breast. Discussed the risk include but not limited to bleeding, infection, need for further surgery and anesthesia. Patient had no further question this time. Courtney Jhaveri M.D. Pager: [phone] [facility] [address] [place] [address], [address], [address] [place] [address] Office: [phone] Coding Level of Care Code Off vis,est,level 3 Diagnoses Pseudoangiomatous stromal hyperplasia of breast N64.89 08/19/24 1544 <Electronically signed by Courtney Jhaveri MD> Date Courtney Jhaveri MD
--- NOTE | 2024-09-09 10:57 | PCM.PRE.AN2 ---
ASA Classification* ASA Classification ASA Classification: 2 Assessment & Plan Anesthesia* Anesthesia Assessment Anesthesia Assessment: Discussed sedation and/or anesthesia options, risks, benefits, and alternatives with patient/parents/legal guardian/POA. Questions invited. The patient/parents/legal guardian/POA seems to understand and agrees to proceed with anesthesia plan. Reviewed the physical assessment, medical history, allergy history and patient home medications list prior to surgery/procedure/anesthetic and documented any changes. Performed airway and anesthesia risk assessments. Anesthesia Type Anesthesia Type: MAC (see written pre anesthesia record for full assessment) Anesthesia Focused Assessment* Temperature: 98.1 F Pulse Rate: 73 Blood Pressure: 119/84 Respiratory Rate: 16 Pulse Ox: 100 Airway Assessment Mouth opens: >3 cm Mallampati Score: III Focused Labs Anesthesia Preop lab: CBC WBC 11.0 K/mm3 (4.4-11.0) 12/18/21 14:39 RBC 4.56 M/mm3 (4.2-5.4) 12/18/21 14:39 Hgb 14.4 g/dL (12.0-15.0) 12/18/21 14:39 Hct 41.6 % (37-47) 12/18/21 14:39 Plt Count 322 K/mm3 (150-450) 12/18/21 14:39 CHEMISTRY Potassium 4.0 mmol/L (3.5-5.1) 12/18/21 14:39 Sodium 138 mmol/L (136-145) 12/18/21 14:39 BUN 14 mg/dL (7-18) 12/18/21 14:39 Creatinine 0.77 mg/dL (0.55-1.02) 12/18/21 14:39 Glucose 142 mg/dL (74-106) H 12/18/21 14:39 TSH 1.89 uIU/mL (0.358-3.74) 12/18/21 14:39 COAG PT 12.8 SECONDS (11.7-14.9) 10/12/20 11:23 Urine Test Negative Negative 12/21/15 06:30 Pre-Assessment Diagnosis/Proposed Procedure Planned Operative Procedure(s): ULTRASOUND GUIDED WIRE LOC, EXCISION BIOPSY LEFT BREAST Anesthesia History Anesthesia History - side stitcher: Anesthesia History - side stitcher Hx Hospitalization No 08/24/24 14:19 Any Problems With Anesthesia Yes: NAUSEA AFTER SURGERY 08/24/24 14:19 Cholinesterase deficiency No 08/24/24 14:19 You/Your Family Experience No 08/24/24 14:19 fever (hyperthermia) with Relationship MOTHER 12/15/15 09:22 Recent Exposure to Contagious No 09/09/24 10:25 Disease Does patient have nerve No 08/24/24 14:19 stimulator Patient instructed to have device shut off --Does patient have Pacemaker No 09/09/24 10:25 or ICD? When Was Last Pacemaker Check QUESTION #4 FULL TEXT: You/Your Family Experience fever (hyperthermia) with Anesthesia Last Oral Intake Last Oral intake: Last Oral Intake NPO since 22:00 09/09/24 10:25 Meds taken in AM with sips of Yes 09/09/24 10:25 water? Meds patient instructed to cymbalta 09/09/24 10:25 take am of surgery PONV PONV - side stitcher: PONV - side stitcher Female Yes 08/24/24 14:19 HX of Motion Sickness No 08/24/24 14:19 HX of N/V After Surgery Yes 08/24/24 14:19 Non-Smoker No 08/24/24 14:19 Duration of Surgery greater No 08/24/24 14:19 than 60 minutes Number of Risk Factors 2 08/24/24 14:19 PONV Score Moderate Risk 08/24/24 14:19 Height & Weight Height & Weight: Anesthesia: Height & Weight Height 5 ft 7 in 09/09/24 10:25 Weight: 91.9 kg 09/09/24 10:25 Body Mass Index (BMI) 31.7 09/09/24 10:25 Respiratory Assessment Respiratory Assessment - side stitcher: Respiratory Tract Infection Hx - side stitcher Hx Respiratory Tract Infection No 08/24/24 14:19 STOP Sleep Apnea STOP Sleep Apnea - side stitcher: STOP Sleep Apnea - side stitcher Hx Hypertension No 08/24/24 14:19 Hx Sleep Apnea No 08/24/24 14:19 CPAP No 12/21/15 08:56 BIPAP No 12/15/15 09:22 Do you snore loudly (louder No 08/24/24 14:19 than talking or can be heard Do you often feel tired/ No 08/24/24 14:19 fatigued/ sleepy during daytime? Has anyone observed you stop No 08/24/24 14:19 breathing during sleep? STOP Results Negative 08/24/24 14:19 QUESTION #5 FULL TEXT : Do you snore loudly (louder than talking or can be heard through closed doors)? Tobacco Use History Tobacco Use History - side stitcher: Tobacco Use History - side stitcher Tobacco Use Smoking Status Current every day smoker 08/24/24 14:19 Hx Tobacco Use No 08/24/24 14:19 Years Smoking Packs Smoked per Day Smoking Cessation Date was within the last 15 years Hx Smoking Cessation Date Hx Smoking Cessation Counseling Hematologic Medial History Hematologic Hx - side stitcher: Hematologic Medical Hx - loan documentation specialist Hx of Blood Transfusion No 08/24/24 14:19 Hx of Transfusion in last 3 No 08/24/24 14:19 Months Date of Last Transfusion (if within last 3 months) Ever experience any problems No 08/24/24 14:19 with transfusion(s)? Specify any problems Hx of Preganancy in last 3 No 08/24/24 14:19 Months Nurse Filling Out Transfusion [email or web address] 08/24/24 14:19 & Questions: Date: 08/24/24 08/24/24 14:19 Time: 14:23 08/24/24 14:19 Patient unable to answer at this time (ie. confused, unrespo /Reproduction History /Reproductive History - side stitcher: /Reproductive Hx- side stitcher Hx Now Gestational Age (in weeks): EDC: Hx Hx Para Hx Section SAB No 07/27/24 11:02 Active Medications Active Medications: Current Medications Generic Name Dose Route Start Last Admin Trade Name Freq PRN Reason Stop Dose Admin Cefazolin Sodium 2 gm/ N/A 20 mls @ 400 mls/hr 09/09/24 11:20 IV 09/09/24 11:22 PREOP ONE PFSH Medical History Smoker Contraceptive management Constipation Anxiety Depression Cluster headaches Arthritis Left breast mass Home Medications ?Medication ?Instructions ?Recorded ?Last Taken ?Type cetirizine 10 mg tablet 10 mg PO DAILY 12/15/15 12/21/15 05:30 History 10 MG melatonin 10 mg capsule 10 mg PO HS Sleep 01/06/20 09/08/24 History multivitamin 1 tab PO DAILY 05/11/21 Unknown History duloxetine 60 mg capsule,delayed 120 mg PO DAILY 07/27/24 09/09/24 History release (Cymbalta) gabapentin 800 mg tablet 1,600 mg PO QHS 07/27/24 09/08/24 History naproxen sodium 220 mg capsule 220 mg PO BID PRN pain 07/27/24 Unknown History sumatriptan succinate 50 mg tablet 50 mg PO ONCE PRN migraine 07/27/24 Unknown Rx headache #10 tabs Lactobacillus acidophilus 10 100 mmu cells PO DAILY 08/24/24 Unknown History billion cell capsule (Probacap) ascorbic acid (vitamin C) 1,000 mg 1,000 mg PO DAILY 08/24/24 Unknown History tablet,extended release (C Complex) cholecalciferol (vitamin D3) 25 25 mcg PO DAILY 08/24/24 Unknown History mcg (1,000 unit) tablet (Vitamin D3) mirtazapine 30 mg tablet 30 mg PO QHS 08/24/24 09/08/24 History Allergy/AdvReac Type Severity Reaction Status Date / Time codeine Allergy Unknown Verified 09/09/24 10:22 Sulfa (Sulfonamide Allergy Hives Verified 09/09/24 10:22 Antibiotics) sulfamethoxazole (From Allergy Unknown Verified 09/09/24 10:22 Bactrim) trimethoprim (From Bactrim) Allergy Unknown Verified 09/09/24 10:22 oxycodone AdvReac Mild Itching Verified 09/09/24 10:22 Family History Aunt Cancer lung,ovarian, hodgkins lymphoma Grandmother Cancer leukemia Colon cancer Heart disease Surgical History Hx of left breast biopsy History of back surgery History of knee surgery History of total vaginal hysterectomy (TVH) Social History current occupational status: employed current occupation: [employer] / [employer] Smoking Status: Current every day smoker tobacco type: cigarettes alcohol intake: former details: social substance use type: does not use caffeine: Yes what type of physical activity do you participate in: walking seatbelt use: always do you feel safe at home: Yes additional social history: Patient works at the [employer] and [employer] Review of Systems (Anesthesia) ROS Narrative System reviewed and no additional complaints, except as documented.
[2024-09-09] MEDS: Cefazolin 2 GM in Syringe IV (11:19)
--- NOTE | 2024-09-09 11:20 | BREAST_PTH ---
PATIENT: SEBASTIEN MCNEILL LOC: [facility] U#:[id number] AGE/SX: 49/F ROOM: RE09/09/[address]: Dr. Courtney Jhaveri MD : 1975 BED: DIS: 09/09/2024 SPEC #: [id number] RECD: 09/10/24 14:33 STATUS: NIKKI REQ #: [id number] SUKHWINDER: 09/09/24 11:[address]: Courtney Jhaveri DEPT: SURGICAL PATHOLOGY RECD BY: Douglas Blancas ENTERED: 09/10/24 14:34 SP TYPE: BREAST OTHR DR: Dr. Nash Tillman MD Tissues: Breast, NOS Procedures: Surgery Specimen Level IV HEADER OPERATION: Ultrasound guided wire localization left excision breast biopsy PRE-OP DIAGNOSIS: Pseudoangiomatous stromal hyperplasia of breast TISSUE SUBMITTED: Left breast mass MICROSCOPIC DIAGNOSIS Left breast mass, lumpectomy: Fibroadenoma with extensive pseudoangiomatous stromal hyperplasia. Focal intraductal hyperplasia without atypia. Fibrocystic change with associated banal microcalcifications. See comment. AM. 09/14/2024 COMMENT Immunohistochemistry ([id number]) supports the above diagnosis. Case has been reviewed in consultation with Dr. Benavides who concurs with the above diagnosis. IDC:SJ MICROSCOPIC DESCRIPTION Slides are reviewed. GROSS DESCRIPTION Received in fixative is one container labeled with the patient's name and designated Left breast mass. The specimen consists of an oriented fragment of thompson-yellow fibrofatty tissue measuring 6.3 x 4.5 x 2.5cm and weighing 31gm. The specimen contains a metallic wire. The specimen is differentially inked as follows: superior-blue, inferior- black, posterior-green, anterior- yellow, medial-red, lateral-orange. Serial sections reveal homogenous light thompson-white rubbery cut surfaces. No distinct mass lesion is identified. Gravity Prospector sections are submitted as follows: 1&2- inked perpendicular margins, 3-10- random accounts payable representative sections. Sections are submitted after additional fixation. AM. 09/10/2024 TC:1 CPT:28097
--- NOTE | 2024-09-09 12:00 | BI_ITS ---
SURGICAL BREAST SPECIMEN RADIOGRAPH CLINICAL: Document presence of tissue clip marker in biopsy specimen. FINDINGS: Specimen shows presence of tissue clip marker. Electronically Signed: Alexsander Rush MD at 12:45 EDT , BI/Breast Biopsy Specimen IMPRESSION: undefined
--- NOTE | 2024-09-09 12:01 | PCM.OPRPT ---
Report of Operation Date of Procedure: 09/09/24 Pre-Operative Diagnosis: Left breast PASH Post-Operative Diagnosis: Same Surgery/Procedure Performed:: Ultrasound-guided needle localization left breast excisional biopsy Surgeon: Courtney Jhaveri senior clinical project manager: Trista Hansen Type of Anesthesia: General/Supplemental Anesthesiologist: Jason Vuong Special Medications: Ancef 2 g IV x 1 Specimen's removed: Left breast biopsy?6:00 Estimated Blood Loss (mL): < 10 cc Description of Procedure: Patient was brought to operating placed spine operating table. Timeout was completed verifying correct patient, procedure, site, positioning, special, prior began procedure. General anesthesia was induced. Patient's left breast was prepped draped in a sterile fashion. Ultrasound guided needle localization with Kopan needle was completed with the wire just inferior to the breast lesion?[facility]. A radial incision was planned in such a way as to minimize the amount of dissection to reach the mass. Flaps were raised in the location of the wire confirmed. The wire was delivered into the wound. 2 silk [id number] stay suture was placed around the wire and used for traction. Dissection was then taken down circumferentially with electrocautery, taking care to include the entire localization needle and wide margin of grossly normal tissue. The specimen and entire localizing wire were removed. The specimen was oriented and sent to mammography for confirmation clip. Confirmation was received that the entire target lesion had been resected. The cavity was irrigated. Hemostasis was obtained with electrocautery. The breast incision was closed with interrupted sutures of 3-0 Vicryl and subcuticular sutures of 4-0 Monocryl. TENTERER assisted in with retraction and closure. No attempt was made to close the space. A dressing of fluff gauze and supportive bra placed. The patient tolerated procedure well was taken to the postanesthesia care in stable condition. Complications none
[2024-09-09] MEDS: Bupiv/Epi 0.25% 30 ML Vial (12:07)
--- NOTE | 2024-09-09 12:07 | EX.PCM.DISCH ---
Discharge Instructions Diet Discharge Diet: No restrictions Activity Discharge Activity: May Not Drive (for 2-3 days or while taking narcotic pain meds.) May shower in (days): 1 Lifting Restrictions: 10 pounds for 1 week. Dressing / Incision Call your doctor if your incision/area has: Continuous Slow Oozing, Sudden Increased Bleeding, Increased Pain/ Swelling and Increased Redness Call your doctor if you observe: Fever of 101 or Higher Suture Line Care: Avoid Pulling/Pushing Remove Dressing in: 1 day Additional Dressing/Incision Instructions:: Remove bulky dressing tomorrow. May leave op-site dressing for 2-3 days. Okay to remove Steri-Strips from the breast incision in 7 to 10 days. Follow Up Care Please Follow Up With: Courtney Jhaveri MD When: Please call [phone] for an appointment to be seen in 2 week. Test Results: Test results from this visit will be discussed in further detail at your follow-up appointment, if applicable. Discharge Plan Admission Attending Provider: Courtney Jhaveri Primary Care Provider: Nash Tillman Instructions Print Language: Burkinan Discharge Orders/Prescriptions Prescriptions: New oxycodone 5 mg capsule 5 mg PO Q6H PRN (Reason: pain) 3 Days Qty: 5 0RF Continued gabapentin 800 mg tablet 1,600 mg PO QHS melatonin 10 mg capsule 10 mg PO HS duloxetine [Cymbalta] 60 mg capsule,delayed release(DR/EC) 120 mg PO DAILY multivitamin Tablet 1 tab PO DAILY naproxen sodium 220 mg capsule 220 mg PO BID PRN (Reason: pain) sumatriptan succinate 50 mg tablet 50 mg PO ONCE PRN (Reason: migraine headache) Qty: 10 2RF cetirizine 10 MG tablet 10 mg PO DAILY Patient Comments: allergies mirtazapine 30 mg tablet 30 mg PO QHS cholecalciferol (vitamin D3) [Vitamin D3] 25 mcg (1,000 unit) tablet 25 mcg PO DAILY Probacap 10 billion cell capsule 100 mmu cells PO DAILY C Complex 1,000 mg tablet extended release 1,000 mg PO DAILY Referrals / Follow Up: Nash Tillman MD [Primary Care Provider] - Disposition Disposition (needs filled in before D/C Order can be placed): Home, Self Care
--- NOTE | 2024-09-09 12:30 | PCM.POST.ANE ---
Anesthesia: Postop Eval I Current Vital Signs Temperature: 97.6 F Pulse Rate: 82 Blood Pressure: 147/97 Respiratory Rate: 16 Pulse Ox: 99 Oxygen Delivery Method: Room Air Assessment Airway patent: Yes Spontaneous unlabored respirations: Yes Mental status: Awake and Calm nausea: No Vomiting: No Anesthesia Complication: No Fluid Hydration Crystalloid volume administer (ml): 20 Total IV fluid infused: 20 Progress Note Anesthesia document: Postop Eval 1 completed: Yes
--- NOTE | 2024-09-09 12:47 | POSTOPAN2_ITS ---
Anesthesia Postop Eval I Sum Postop Eval Completion status Anesthesia document: Postop Eval 1 completed: Yes Anesthesia Postop Eval I Summary Anesthesia Postop Eval I Summary: Anesthesia Postop Eval I: Assessment Summary Airway patent Yes 09/09/24 12:31 AIRCRAFT STEEL FABRICATOR.[email or web address] Spontaneous unlabored Yes 09/09/24 12:31 AIRCRAFT STEEL FABRICATOR.[email or web address] respirations Mental status Awake,Calm 09/09/24 12:31 AIRCRAFT STEEL FABRICATOR.GDOTT nausea No 09/09/24 12:31 AIRCRAFT STEEL FABRICATOR.GDOTT Vomiting No 09/09/24 12:31 AIRCRAFT STEEL FABRICATOR.GDOTT Anesthesia Postop Eval I: Fluid Summary Crystalloid volume administer 20 09/09/24 12:31 AIRCRAFT STEEL FABRICATOR.GDOTT (ml) Colloids volume administered ( ml) Blood Product volume administered (ml) Total IV fluid infused 20 09/09/24 12:31 AIRCRAFT STEEL FABRICATOR.GDOTT Anesthesia Postop Eval I: Summary Notes Anesthesia Complication No 09/09/24 12:31 AIRCRAFT STEEL FABRICATOR.GDOTT Anesthesia Complication Comment: Post-operative progress note Anesthesia: Postop Eval II Evaluation Mental status: Awake Pain Level: 0 nausea: No Vomiting: No
--- NOTE | 2024-09-09 12:47 | PCM.POSTANE2 ---
Anesthesia Postop Eval I Sum Postop Eval Completion status Anesthesia document: Postop Eval 1 completed: Yes Anesthesia Postop Eval I Summary Anesthesia Postop Eval I Summary: Anesthesia Postop Eval I: Assessment Summary Airway patent Yes 09/09/24 12:31 INSURANCE OFFICE MANAGER.[email or web address] Spontaneous unlabored Yes 09/09/24 12:31 INSURANCE OFFICE MANAGER.GDOTT respirations Mental status Awake,Calm 09/09/24 12:31 INSURANCE OFFICE MANAGER.GDOTT nausea No 09/09/24 12:31 INSURANCE OFFICE MANAGER.GDOTT Vomiting No 09/09/24 12:31 INSURANCE OFFICE MANAGER.GDOTT Anesthesia Postop Eval I: Fluid Summary Crystalloid volume administer 20 09/09/24 12:31 INSURANCE OFFICE MANAGER.GDOTT (ml) Colloids volume administered ( ml) Blood Product volume administered (ml) Total IV fluid infused 20 09/09/24 12:31 INSURANCE OFFICE MANAGER.GDOTT Anesthesia Postop Eval I: Summary Notes Anesthesia Complication No 09/09/24 12:31 INSURANCE OFFICE MANAGER.GDOTT Anesthesia Complication Comment: Post-operative progress note Anesthesia: Postop Eval II Evaluation Mental status: Awake Pain Level: 0 nausea: No Vomiting: No
[2024-09-09] MEDS: Acetaminophen 325 MG Tablet 650 MG PO (13:05)
[2024-09-09] MEDS: oxyCODONE 5 MG Tablet PO (13:05)
[2024-09-09] MEDS: DiphenhydrAMINE 25 MG Capsule PO (13:35)
== END 2024-09-09 13:50 | disposition home or self-care (01) ==
LOC: SDC 09:42 → AC 09:47
PROVIDERS: PCP Family Medicine; Referring Provider Surgery; Visit Provider Surgery
PROC: (CPT 19083; principal; 2024-09-09 11:05)
DX: N64.89 Other specified disorders of breast (principal); Z90.710 Acquired absence of both cervix and uterus; F17.210 Nicotine dependence, cigarettes, uncomplicated
CPT/HCPCS: 19083; 00400; 76098; 88305; 88341; 88342; A4216; J2405

== ENCOUNTER 2025-01-23 09:35 | Emergency (ER) | payer BC, SELFPAY ==
[2025-01-23 09:35] VITALS: BP 116/99; PULSE 89; RESP 20; TEMP 35.6; O2SAT 100
[2025-01-23 09:37] VITALS: BMI 32.2
--- NOTE | 2025-01-23 10:03 | ED.RN ---
PER PT STATEMENT SHE IS HERE FOR BACK BACK AFTER BENDING TO PET HER DOG THIS MORNING, HX OF TWO BACK SURGERIES. PT ALSO STATES SHE HAS CONCERN WITH HEMORRHOIDS SHE WANTS LOOKED AT
--- NOTE | 2025-01-23 10:05 | ED.VIS.BACK ---
HPI History of Present Illness Chief Complaint: Back Informant: patient Onset/Context/Timing Onset: Today Context: Sudden Onset Injury: bending Timing: Continuous Quality: Sharp, Aching and Throbbing Location: Lumbar Worsened by: improves with Movement Associated Symptoms Associated Symptoms: Constipation; Negative for Numbness, Tingling, Radiation to Right Leg, Radiation to Left Leg, Fever, Abdominal Pain, Dysuria, Unable to Ambulate, Unable to Transfer, Urinary Retention, Urinary Incontinence or Fecal Incontinence Narrative Narrative: Patient presents with back pain that began today. Patient states she was bending over to pet her dog. Patient states her pain began suddenly. Patient states it has been constant. Patient states it is worse with any movement. Patient states it is localized to her lower lumbar area. Patient denies any radiation of the pain. Patient denies any bowel or bladder changes. Patient denies any saddle anesthesia. Patient also states she has been constipated over the past few days and has noticed a hemorrhoid. Patient states that she had 1 episode of bleeding from her hemorrhoid. Patient states she has been using Preparation H with minimal relief. [facility] Medical History Smoker Contraceptive management Constipation Anxiety Depression Cluster headaches Arthritis Left breast mass Home Medications ?Medication ?Instructions ?Recorded ?Last Taken ?Type cetirizine 10 mg tablet 10 mg PO DAILY 12/15/15 12/21/15 05:30 History 10 MG melatonin 10 mg capsule 10 mg PO HS Sleep 01/06/20 09/08/24 History multivitamin 1 tab PO DAILY 05/11/21 Unknown History duloxetine 60 mg capsule,delayed 120 mg PO DAILY 07/27/24 01/23/25 History release (Cymbalta) gabapentin 800 mg tablet 1,600 mg PO QHS 07/27/24 01/22/25 History naproxen sodium 220 mg capsule 220 mg PO BID PRN pain 07/27/24 Unknown History sumatriptan succinate 50 mg tablet 50 mg PO ONCE PRN migraine 07/27/24 Unknown Rx headache #10 tabs Lactobacillus acidophilus 10 100 mmu cells PO DAILY 08/24/24 Unknown History billion cell capsule (Probacap) ascorbic acid (vitamin C) 1,000 mg 1,000 mg PO DAILY 08/24/24 Unknown History tablet,extended release (C Complex) cholecalciferol (vitamin D3) 25 25 mcg PO DAILY 08/24/24 Unknown History mcg (1,000 unit) tablet (Vitamin D3) mirtazapine 30 mg tablet 30 mg PO QHS 08/24/24 01/22/25 History docusate sodium 100 mg capsule 100 mg PO BID #20 caps 01/23/25 Unknown Rx oxycodone-acetaminophen 5 mg-325 1 tab PO Q6H PRN PRN Pain 3 days 01/23/25 Unknown Rx mg tablet #12 TABLETS tizanidine 4 mg capsule 4 mg PO Q8H PRN muscle spasticity 01/23/25 Unknown Rx #20 caps Allergy/AdvReac Type Severity Reaction Status Date / Time codeine Allergy Unknown Verified 01/23/25 10:00 Sulfa (Sulfonamide Allergy Hives Verified 01/23/25 10:00 Antibiotics) sulfamethoxazole (From Allergy Unknown Verified 01/23/25 10:00 Bactrim) trimethoprim (From Bactrim) Allergy Unknown Verified 01/23/25 10:00 oxycodone AdvReac Mild Itching Verified 01/23/25 10:00 Family History Aunt Cancer lung,ovarian, hodgkins lymphoma Grandmother Cancer leukemia Colon cancer Heart disease Surgical History Hx of left breast biopsy History of back surgery History of knee surgery History of total vaginal hysterectomy (TVH) Social History current occupational status: employed current occupation: [employer] Smoking Status: Current every day smoker tobacco type: cigarettes alcohol intake: former details: social substance use type: does not use caffeine: Yes what type of physical activity do you participate in: walking seatbelt use: always do you feel safe at home: Yes additional social history: Patient works at the [employer] and [employer] ROS ROS ED Constitutional Constitutional ED: Denies chills or fever(s) Eyes Eyes: Denies blurry vision or change in vision ENT ENT ED: Denies rhinorrhea or sore throat Cardiovascular Cardiovascular: Denies chest pain or palpitations Respiratory/Chest Respiratory/Chest: Denies cough or dyspnea Gastrointestinal Gastrointestinal: Reports nausea; Denies vomiting Genitourinary Genitourinary ED: Denies dysuria or hematuria Musculoskeletal Musculoskeletal: Reports back pain; Denies neck pain Integumentary Denies abscess or rash Neurologic Neurologic: Denies headache(s) or weakness Allergic/Immunologic Allergic/Immunologic ED: Denies mouth swelling or urticaria EXAM Physical Exam Const Vital Signs: 01/23/25 09:35 Temperature 96.1 F L Temperature Source Temporal Pulse Rate 89 Respiratory Rate 20 H Blood Pressure 116/99 H Blood Pressure Mean 104 Pulse Ox 100 Oxygen Delivery Method Room Air Positive well nourished and well developed Constitutional Narrative: BMI is 32.3 General Appearance ED: well developed and NAD HEENT Reports moist mucous membranes Neck supple and no JVD GI GI Narrative: Rectal exam showed good sphincter tone. There was a external hemorrhoid. There is no thrombosis noted. There is no active bleeding noted. There is tenderness of the rectum. Back/Spine Back/Spine Narrative: There is tenderness and spasm of the lumbar paraspinal muscles. There is mild midline tenderness. There is no bony crepitance or step-off noted. Range of motion was limited in all motions of the lumbar spine secondary to pain. Strength is 5/5 bilaterally in the lower extremities. There are no sensory deficits noted. Deep tendon reflexes are 2/4 bilaterally in the lower extremities. Lumbar Spine / Lower Back: ROM limited Extremity General Extremety ED: Negative for edema or tenderness General Extremity: Negative for edema Neuro oriented x3 and no sensory deficits noted Sensorium / Orientation: alert Motor Exam: strength 5/5 throughout Deep Tendon Reflexes: Rt Patellar (L4): 2+, Lt Patellar (L4): 2+, Rt Ankle (S1): 2+ and Lt Ankle (S1): 2+ Deep Tendon Reflexes Back: Rt Patellar (L4): 2+, Lt Patellar (L4): 2+, Rt Ankle (S1): 2+ and Lt Ankle (S1): 2+ Psych mental status grossly normal MDM MDM MDM Narrative Medical decision making narrative: Differential diagnosis includes lumbosacral strain, spondylolisthesis, and lumbar compression fracture. X-rays of the lumbar spine will be obtained to assess for spondylolisthesis and compression fracture. Radiography X-Ray: LS SPine, No Fracture, Normal Bony Alignment, DJD, Spurring and Disk Space Narrowing Diagnostic Testing: Clinical Impression(s) from Imaging Studies Lumbar Spine X-Ray 01/23/25 10:35 IMPRESSION: Degenerative changes with no acute osseous abnormality in the lumbar spine [facility] X-[facility] of the lumbar spine were obtained. There are 2 views. On my independent interpretation, there is no acute fracture or spondylolisthesis. There are some degenerative changes noted. There is some narrowing of the disc space at L4-L5 and L5-1. Treatment and Re-Evaluation Narrative: Patient drove herself to the emergency department. Patient was given injection of Toradol. Patient was given prescriptions for Percocet, docusate, and tizanidine. Patient was instructed to use ice to the area. Patient was instructed to follow-up with her primary care physician in 5 to 7 days. Patient was instructed to return if worse in any way. Patient understood and was agreeable with the plan. All questions were answered. Discharge Plan Triage Chief Complaint: Back ED Provider: Jason Miranda Dx/Rx/DC Orders Clinical Impression: Acute low back pain, External hemorrhoid, Tobacco use Instructions: ED Back Pain (Acute or Chronic), ED Hemorrhoids Prescriptions: New oxycodone-acetaminophen 5-325 mg tablet 1 tab PO Q6H PRN PRN (Reason: Pain) 3 Days Qty: 12 0RF tizanidine 4 mg capsule 4 mg PO Q8H PRN (Reason: muscle spasticity) Qty: 20 0RF docusate sodium 100 mg capsule 100 mg PO BID Qty: 20 0RF No Action gabapentin 800 mg tablet 1,600 mg PO QHS melatonin 10 mg capsule 10 mg PO HS duloxetine [Cymbalta] 60 mg capsule,delayed release(DR/EC) 120 mg PO DAILY multivitamin Tablet 1 tab PO DAILY naproxen sodium 220 mg capsule 220 mg PO BID PRN (Reason: pain) sumatriptan succinate 50 mg tablet 50 mg PO ONCE PRN (Reason: migraine headache) Qty: 10 2RF cetirizine 10 MG tablet 10 mg PO DAILY Patient Comments: allergies mirtazapine 30 mg tablet 30 mg PO QHS cholecalciferol (vitamin D3) [Vitamin D3] 25 mcg (1,000 unit) tablet 25 mcg PO DAILY Probacap 10 billion cell capsule 100 mmu cells PO DAILY C Complex 1,000 mg tablet extended release 1,000 mg PO DAILY Primary Care Provider: Adrián Griggs Referrals: Adrián Griggs MD [Primary Care Provider] - 5-7 Days Nash Tillman MD [Med Staff - Active Staff] - 5-7 Days Print Language: Tajik Disposition Disposition: Home, Self Care
--- NOTE | 2025-01-23 10:35 | RAD_ITS ---
PROCEDURE: LUMBAR SPINE 2 OR 3 VIEWS REASON FOR EXAM: Injury/pain TECHNIQUE: 2 view(s) of the lumbar spine COMPARISON: None. FINDINGS: Normal lumbar vertebral heights. No evidence of fracture. Mild multilevel disc space narrowing. Normal alignment. No spondylolisthesis. RAD/Lumbar Spine 2 or 3 Views IMPRESSION: Degenerative changes with no acute osseous abnormality in the lumbar spine Reading Location: [facility]
[2025-01-23] MEDS: Ketorolac 60 MG/2 ML Vial IM (10:38)
== END 2025-01-23 11:59 | disposition home or self-care (01) ==
PROVIDERS: Emergency Provider Emergency Medicine; PCP Family Medicine; Visit Provider Emergency Medicine
DX: M54.50 Low back pain, unspecified (principal); K64.4 Residual hemorrhoidal skin tags; Z90.710 Acquired absence of both cervix and uterus; Z80.0 Family history of malignant neoplasm of digestive organs; R11.0 Nausea; F17.210 Nicotine dependence, cigarettes, uncomplicated; F41.9 Anxiety disorder, unspecified; F32.A Depression, unspecified
CPT/HCPCS: 72100; 96372; 99283

== ENCOUNTER → 2025-04-19 | Outpatient (CLI) | payer BC, SELFPAY ==
--- NOTE | 2025-04-19 10:15 | BI_ITS ---
EXAM: SCRN MAMM (CAD)W/DAPHNIE BILAT DATE: 04/19/2025 CLINICAL HISTORY: F, Age 49 y/o , SCREEN FOR BREAST CANCER No family history. TECHNIQUE: Bilateral screening digital breast tomosynthesis with 2D and 3D images. Computer aided detection. COMPARISON: Prior exam(s) dated April 15, 2024.. FINDINGS: TISSUE DENSITY: The breast tissue is extremely dense which lowers the sensitivity of mammography. Bilateral Breast Mammographic Findings: Stable 4.4 cm x 6 cm well-defined nodule in the deep upper lateral aspect of the left breast. A tissue clip marker is seen within it. Stable 1.5 cm x 1 cm nodule in the retroareolar region of the left breast. A tissue clip marker is seen within it as well. No suspicious masses, areas of developing architectural distortion, or suspicious calcifications. There has been no significant interval change. BI/SCRN MAMM (CAD)W/DAPHNIE BILAT IMPRESSION: OVERALL FINAL ASSESSMENT: BIRADS 2 BENIGN FINDING RECOMMENDATION: Routine annual follow-up in 1 Year A letter with findings and recommendations will be mailed to the patient. Reading Location: [place] [id number]
== END | disposition home or self-care (01) ==
PROVIDERS: PCP Family Medicine; Referring Provider Obstetrics & Gynecology; Visit Provider Obstetrics & Gynecology
DX: Z12.31 Encounter for screening mammogram for malignant neoplasm of breast (principal)
CPT/HCPCS: 77063; 77067

== ENCOUNTER → 2025-08-23 | Outpatient (CLI) | payer OTHER, SELFPAY ==
[2025-08-23 13:30] LABS: Follicle Stimulating Hormone 6.4 mIU/mL
[2025-08-25 23:08] LABS: Anti-Mullerian Hormone,Serum 0.474 ng/mL (.)
== END | disposition home or self-care (01) ==
PROVIDERS: PCP Family Medicine; Referring Provider Obstetrics & Gynecology; Visit Provider Obstetrics & Gynecology
DX: N95.1 Menopausal and female climacteric states (principal)
CPT/HCPCS: 36415; 82670; 83001; 83516